=== PATIENT | male | born 1960 | race Caucasian/White ===

== ENCOUNTER 2017-01-19 13:35 | Emergency (ER) | payer BC ==
[~2017-01-19] VITALS: Ht 188 cm; Wt 79.4 kg
[2017-01-19] MEDS ORDERED: Mylanta II UD 30ml ORAL ONE (14:15)
[2017-01-19] MEDS ORDERED: Lidocaine 2% Visc 15ml soln ORAL ONE (14:15)
[2017-01-19] MEDS ORDERED: Dicyclomine HCl 10mg/5ml oral soln ORAL ONE (14:15)
[2017-01-19] MEDS ORDERED: ZOFRAN4 M3 ORAL (14:43)
[2017-01-19] MEDS ORDERED: TYLENOL EXTRA500 MG ORAL (14:43)
[2017-01-19 15:01] VITALS: BP 116/81
--- NOTE | 2017-01-19 21:23 | Emergency Room Report ---
History of Present Illness General Chief Complaint: General Complaint Source: Patient Present Illness HPI The patient is a 56 yo male presenting for one day of nausea, vomiting, diarrhea. The patient also admits to subjective fevers and chills. The patient denies any sick contacts or recent travel. Patient denies eating any questionable food recently. The patient is experiencing a 5/10 dull ache in the mid upper abdomen which occurs with vomiting or diarrhea. Pain does not radiate. Patient denies other symptoms including chest pain, shortness of breath, diaphoresis, headache, dizziness, blurred vision, neck pain or stiffness , melena, hematochezia, hematemesis Allergies: Coded Allergies: No Known Allergies (Unverified , 01/19/17) Patient History Past Medical History: see triage record, HIV Pertinent Family History: none Reviewed Nursing Documentation: PMH: Agreed, PSxH: Agreed Nursing Documentation-PMH Past Medical History: No History, Except For Review of Systems All Other Systems: negative except mentioned in HPI Physical Exam Vital Signs Date Time Temp Pulse Resp B/P Pulse Ox O2 Delivery O2 Flow Rate FiO2 01/19/17 13:52 98.1 100 16 108/67 96 Room Air Sp02 EP Interpretation: reviewed, normal General Appearance: no apparent distress, alert, GCS 15, non-toxic Head: normocephalic, atraumatic Eyes: bilateral eye PERRL, bilateral eye normal inspection ENT: hearing grossly normal, normal pharynx, no angioedema, normal voice Neck: full range of motion, supple/symm/no masses Respiratory: chest non-tender, lungs clear, normal breath sounds, speaking full sentences Cardiovascular #1: regular rate, rhythm, no edema Gastrointestinal: soft, no mass, no guarding, abnormal bowel sounds - increased , tenderness - epigastric Genitourinary: normal inspection, no CVA tenderness Musculoskeletal: back normal, gait/station normal, normal range of motion, non- tender Neurologic: alert, oriented x3, responsive, motor strength/tone normal, sensory intact, speech normal Psychiatric: judgement/insight normal, memory normal, mood/affect normal, no suicidal/homicidal ideation Skin: normal color, no rash, warm/dry, well hydrated Lymphatic: no adenopathy Medical Decision Making PA Attestation Dr. Mcleod is my supervising physician. Patient management was discussed with my supervising physician Diagnostic Impression: Primary Impression: Gastroenteritis ER Course The patient is a 56 yo male presenting for one day of nausea, vomiting, diarrhea Differential diagnoses considered include but not limited to gastroenteritis, appendicitis, cholecystitis PE: afebrile NAD. Abdomen: Normal appearance. Non distended. No ecchymosis. Increased BS. + TTP over epigastric region. No McBurney point tenderness. No guarding. No CVA tenderness The patient is given a GI cocktail and Zofran and is feeling better The patient is discharged home with a prescription for Zofran and will take in plenty of fluids. ER precautions are given. Patient will followup with PMD Last Vital Signs Date Time Temp Pulse Resp B/P Pulse Ox O2 Delivery O2 Flow Rate FiO2 01/19/17 15:01 102 17 116/81 98 Room Air 01/19/17 15:01 98.9 Status: improved Disposition: HOME, SELF-CARE Condition: Improved Scripts Acetaminophen* (TYLENOL EXTRA STRENGTH*) 500 Mg Tablet 500 MG ORAL Q8H Y for Prn Headache/Temp > 101, #30 TAB 0 Refills Prov: FRANCO RICHARDS 01/19/17 Ondansetron* (ZOFRAN*) 4 Mg Tablet 4 MG ORAL Q6H Y for Nausea & Vomiting, #15 TAB Prov: FRANCO RICHARDS 01/19/17 Referrals: NON PHYSICIAN (PCP) Patient Instructions: Diarrhea, Adult Additional Instructions: I discussed my findings with the patient. All questions and concerns have been answered. Treatment and medication compliance have been addressed. I advised the patient that they need to follow up with PMD in 3-5 days. Return to ED if symptoms worsen, new symptoms arise, or if needed for any reason. Patient verbalized understanding of discharge instructions. FRANCO RICHARDS Jan 19, 2017 21:23
== END 2017-01-19 15:03 | disposition home or self-care (01) ==
LOC: EMR 14:41
DX: K52.9 Noninfective gastroenteritis and colitis, unspecified (principal)
CPT/HCPCS: 99284